=== PATIENT | male | born 1965 | race Two or more races ===

== ENCOUNTER 2018-04-21 09:16 | Emergency (ER) | payer OTHER ==
[2018-04-21] MEDS ORDERED: AMPICILLIN/SULBACTAM 3 GM in NS 100 ML IV ONE (10:05)
--- NOTE | 2018-04-21 10:15 | EDPHY ---
H & P Time Seen by Provider: 04/21/18 09:36 HPI/ROS: CHIEF COMPLAINT: Right forearm red, painful HISTORY OF PRESENT ILLNESS: Patient states he developed right arm pain on Saturday evening when he was at a [employer] with his . He states it"felt like a bruise". Later that evening he started to developed flu-like symptoms with body aches and chills. By the next morning the area was much redder and more painful and he started Keflex. Patient has paroxysmal nocturnal hemoglobinuria and is on a immunosuppressant medication given as an infusion every [address] Tucker. Because of this immunosuppression he has prescriptions for Keflex at home that he will initiate if he is concerned about infection. On Saturday he took 500 mg of Keflex twice, he did the same on Saturday. This morning the area had"doubled in size"and he came in for evaluation. He states he thinks he has been having fevers with rigors. He has not measured a temperature. He took 800 mg of ibuprofen this morning prior to arrival. He denies any nausea, vomiting, diarrhea. He has got no abdominal pain. He has no other rashes. He does feel some discomfort under his armpit. He is unsure about the initiation of this infection but does have cats and thinks he may have been scratched by a cat late last week. He is usually quite careful about washing his skin immediately after this occurs although may have been a little bit delayed last week. There are no open lesions to the arm and he remembers no other trauma. Contents of 10 point review of systems otherwise negative except for what is mentioned in HPI. General Appearance: Alert, no distress. Eyes: Pupils equal and round no pallor or injection. ENT, Mouth: Mucous membranes moist. Respiratory: There are no retractions, lungs are clear to auscultation. Cardiovascular: Regular rate and rhythm. Gastrointestinal: Abdomen is soft and nontender, no masses, bowel sounds normal. Neurological: Awake, alert, no focal neurologic deficits. Skin: Warm and dry, right forearm with swelling, mild edema, erythema from essentially wrist to elbow. Not circumferential. Anteromedial portion most affected. No palpable lymphadenopathy to right axilla. Musculoskeletal: Neck is supple nontender. Extremities are symmetrical, full range of motion. Distal circulation, sensation, movement intact throughout. Psychiatric: Patient is oriented X 3, there is no agitation. Medical/surgical history: Paroxysmal nocturnal hemoglobinuria, asthma, surgeries include right hip and knees. 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 Nonsmoker. Smoking Status: Never smoked Constitutional: Initial Vital Signs Temperature (C) 36.6 C 04/21/18 09:21 Heart Rate 73 04/21/18 09:21 Respiratory Rate 16 04/21/18 09:21 Blood Pressure 126/76 H 04/21/18 09:21 O2 Sat (%) 97 04/21/18 09:21 O2 Delivery Mode Room Air Allergies/Adverse Reactions: SEASONAL Allergy (Intermediate, Uncoded 04/21/18 09:26) SNEEZY, ITCHY EYES Home Medications: Medication Instructions Recorded Albuterol Hfa Anes Only [Proair 2 puffs IH QID 10/04/12 Hfa Anes Only] Advair 100/50 (RX) 06/29/13 Acyclovir 04/21/18 Amoxicillin/Clavulanate Pot 875 mg PO BID #14 tab 04/21/18 [Augmentin 875 MG TAB (*)] Chloraphenarmine 04/21/18 Eculizumab 04/21/18 Medical Decision Making ED Course/Re-evaluation: CBC shows pancytopenia. Discussed with patient and he has access electronically to his previous CBC. Generally lower than about 1 week ago. He has since gotten his infusion and these drops are expected. 12:[address] Tucker, heme on, reviewed lab changes, antibiotics given and plan, clinical presentation with Dr. Tucker. We both feel patient quite reliable and will be able to be followed up in 1-2 days at [facility] [place] [facility]. Differential Diagnosis: Differential diagnosis includes but is not limited to cellulitis, abscess, dermatitis, allergic reaction, fascititis, sepsis. After evaluation patient with cellulitis to the right forearm. No signs of sepsis, deep space infection or abscess, hemodynamic stability, afebrile in the emergency department. Patient is not neutropenic although does have pancytopenia after recent eculizumab infusion. Given IV antibiotics in the emergency department and discharged with prescription for continued oral antibiotics. Instructed not to go back to work this afternoon and will keep arm in a sling. Will follow up with his oncologist tomorrow for reassessment. Does understand that if symptoms worsen in any way he should get back to the emergency department right away. Stable for discharge. - Data Points Laboratory Results: Laboratory Results 04/21/18 10:05 04/21/18 10:05 WBC 3.65 10^3/uL L 10^3/uL (3.80-9.50) RBC 2.52 10^6/uL L 10^6/uL (4.40-6.38) Hgb 9.8 g/dL L g/dL (13.7-17.5) Hct 28.3 % L % (40.0-51.0) MCV 112.3 fL H fL (81.5-99.8) MCH 38.9 pg H pg (27.9-34.1) MCHC 34.6 g/dL g/dL (32.4-36.7) RDW 14.6 % % (11.5-15.2) Plt Count 161 10^3/uL 10^3/uL (150-400) MPV 9.6 fL fL (8.7-11.7) Neut % (Auto) Not Reported Lymph % (Auto) Not Reported [place] % (Auto) Not Reported Eos % (Auto) Not Reported Baso % (Auto) Not Reported Nucleat RBC Rel Count Not Reported Absolute Neuts (auto) Not Reported Absolute Lymphs (auto) Not Reported Absolute Monos (auto) Not Reported Absolute Eos (auto) Not Reported Absolute Basos (auto) Not Reported Absolute Nucleated RBC Not Reported Immature Gran % Not Reported Seg Neutrophils % 81.0 % % Band Neutrophils % 3.0 % % Lymphocytes % 9.0 % % Monocytes % 4.0 % % Eosinophils % 2.0 % % Basophils % 1.0 % % Metamyelocytes % 0.0 % % Myelocytes % 0.0 % % Promyelocytes % 0.0 % % Blast Cells % 0.0 % % Immature Gran # Not Reported Absolute Seg Neuts 2.96 10^3/uL 10^3/uL (1.70-6.50) Absolute Band Neuts 0.11 10^3/uL 10^3/uL (0.00-0.70) Absolute Lymphocytes 0.33 10^3/uL L 10^3/uL (1.00-3.00) Absolute Monocytes 0.15 10^3/uL L 10^3/uL (0.30-0.80) Absolute Eosinophils 0.07 10^3/uL 10^3/uL (0.03-0.40) Absolute Basophils 0.04 10^3/uL 10^3/uL (0.02-0.10) Absolute Metamyelocyte 0.00 10^3/mL 10^3/mL (0.00-0.00) Absolute Myelocytes 0.00 10^3/mL 10^3/mL (0.00-0.00) Absolute Promyelocytes 0.00 10^3/uL 10^3/uL (0.00-0.00) Absolute Plasma Cells 0.00 10^3/uL 10^3/uL (0.00-0.00) Nucleated RBCs 0 /100 WBC /100 WBC (0-0) Atypical Lymphocytes 1+ H Absolute Blast Cells 0.00 10^3/uL 10^3/uL (0.00-0.00) Plasma Cells % 0.0 % % Platelet Estimate ADEQUATE (ADEQ) Polychromasia 1+ H Oval Macrocytes 1+ H Medications Given: Discontinued Medications Ampicillin Sodium/Sulbactam (Sodium 3 gm/ Sodium Chloride) 100 mls @ 200 mls/ hr IV EDNOW ONE PRN Reason: Protocol Stop: 04/21/18 10:34 Last Admin: 04/21/18 10:43 Dose: 100 mls Departure - Departure Disposition: Home, Routine, Self-Care Clinical Impression: Cellulitis Qualifiers: Site of cellulitis: extremity Site of cellulitis of extremity: upper extremity Laterality: right Qualified Code(s): L03.113 - Cellulitis of right upper limb Condition: Good Instructions: Amoxicillin/Clavulanate Potassium (By mouth), Cellulitis (ED) Additional Instructions: Keep your arm immobilized and try to not use upper extremity as much as possible over the next 48 hr. Take Augmentin until prescription complete. You should probably be rechecked in 24 hr by your oncologist, Dr. Tucker. If symptoms get worse in any way you should return to the hospital emergency department. Referrals: Philippe Padilla DO [Primary Care Provider] - As per Instructions Prescriptions: Amoxicillin/Clavulanate Pot [Augmentin 875 MG TAB (*)] 875 mg PO BID #14 tab
[2018-04-21 11:17] LABS: PLATELET COUNT 161 10^3/uL (150-400)
[2018-04-21 12:35] VITALS: BP 100/67
== END 2018-04-21 12:26 | disposition home or self-care (01) ==
LOC: CED 09:16
DX: L03.113 Cellulitis of right upper limb (principal); E86.9 Volume depletion, unspecified
CPT/HCPCS: 96365; 99284-ER; J0295